=== PATIENT | female | born 1955 | race Caucasian/White ===

== ENCOUNTER → 2023-12-31 15:10 | Outpatient (REF) | payer BC, SELFPAY ==
[2023-12-31 15:41] LABS: Ionized Calcium 1.28 mMOL/L (1.15-1.33)
[2023-12-31 16:22] LABS: ALT (SGPT) 29 U/L (0-35); AST (SGOT) 35 U/L (14-36); Albumin 4.3 g/dl (3.5-5.0); Alkaline Phosphatase 52 U/L (38-126); Blood Urea Nitrogen 13 mg/dl (7-17); Calcium 11.1 mg/dl (8.4-10.2); Carbon Dioxide 29 mmol/L (22-30); Chloride 101 mmol/L (98-107); Glucose 96 mg/dl (70-99); Potassium 4.4 mmol/L (3.5-5.1); Sodium 136 mmol/L (135-145); Total Bilirubin 0.7 mg/dl (0.2-1.3); Total Protein 7.3 g/dl (6.3-8.2); eGFR > 60.00
[2023-12-31 16:39] LABS: Free T3 3.41 pg/ml (2.77-5.27); Free T4 1.04 ng/dl (0.78-2.19)
[2023-12-31 16:45] LABS: Intact PTH 10.9 pg/ml (13.6-85.8)
[2023-12-31 16:53] LABS: TSH 0.15 uIU/ml (0.47-4.68)
[2024-01-01 13:56] LABS: tTG IgA Antibody 2.9 EU/ml (0-19); tTG IgG Antibody 69.8 EU/ml (0-19)
[2024-01-01 23:55] LABS: IgA 135 mg/dl (70-400)
[2024-01-03 00:02] LABS: Thyroid Peroxidase Ab (TPO) 5.3 IU/mL (0.0-9.0)
[2024-01-03 00:17] LABS: Thyroglobulin 29.1 ng/mL (1.3-31.8); Thyroglobulin Antibodies <0.9 IU/mL (0.0-4.0)
[2024-01-04 03:16] LABS: Endomysial IgA Antibody Titer <1:10 (<1:10)
[2024-01-05 04:14] LABS: Albumin 4.38 g/dL (3.75-5.01); Alpha 1 Globulin 0.22 g/dL (0.19-0.46); Alpha 2 Globulin 0.65 g/dL (0.48-1.05); Free Kappa Light Chains,Quant 15.78 mg/L (3.30-19.40); Free Lambda Light Chains,Quant 11.54 mg/L (5.71-26.30); IgA 139 mg/dL (68-408); IgG 793 mg/dL (768-1632); IgM 75 mg/dL (35-263); Immunofixation Electrophoresis IFE Done; Kappa/Lambda Fr Light Ratio 1.37 (0.26-1.65); Total Protein-Electrophoresis 6.8 g/dL (6.3-8.2)
== END ==
LOC: RAD 15:10
PROVIDERS: ATTENDING PHYSICIAN Internal Medicine Rheumatology; FAMILY PHYSICIAN Internal Medicine
DX: D47.2 Monoclonal gammopathy (principal); D50.9 Iron deficiency anemia, unspecified; E04.1 Nontoxic single thyroid nodule; E07.9 Disorder of thyroid, unspecified; E21.5 Disorder of parathyroid gland, unspecified; E24.8 Other Cushing's syndrome; E83.52 Hypercalcemia; M81.0 Age-related osteoporosis without current pathological fracture; Z87.81 Personal history of (healed) traumatic fracture
CPT/HCPCS: 36415; 72072; 72100; 80053; 82330; 82728; 82784; 83516; 83521; 83970; 84155; 84165; 84432; 84439; 84443; 84481; 86231; 86334; 86376; 86800

== ENCOUNTER → 2024-01-01 09:17 | Outpatient (REF) | payer BC, SELFPAY ==
[2024-01-01 11:54] LABS: Cortisol, Random 24.6 ug/dl
== END ==
LOC: REG 09:17
PROVIDERS: ATTENDING PHYSICIAN Internal Medicine Rheumatology; FAMILY PHYSICIAN Internal Medicine
DX: D47.2 Monoclonal gammopathy (principal); D50.9 Iron deficiency anemia, unspecified; E04.1 Nontoxic single thyroid nodule; E07.9 Disorder of thyroid, unspecified; E21.5 Disorder of parathyroid gland, unspecified; E24.8 Other Cushing's syndrome; K90.41 Non-celiac gluten sensitivity
CPT/HCPCS: 36415; 82533

== ENCOUNTER → 2024-01-03 16:51 | Outpatient (REF) | payer BC, SELFPAY ==
[2024-01-03 17:43] LABS: % Basophils 0.5 % (0-2); % Immature Granulocytes 0.1 % (0-0.5); % Lymphocytes 34.9 % (20.5-51.1); % Monocytes 8.9 % (1.7-9.3); % Neutrophils 51.6 % (42.2-75.2); Absolute Eosinophils 0.3 10^3/uL (0-0.7); Absolute Lymphocytes 2.6 10^3/uL (1.2-3.4); Absolute Monocytes 0.7 10^3/uL (0.1-0.6); Absolute Neutrophils 3.8 10^3/uL (1.4-6.5); Hemoglobin 13.5 g/dL (12.0-16.0); Mean Corp Hgb Conc. 33.8 g/dL (33.0-37.0); Mean Corpuscular Hgb 30.3 pg (27.0-31.0); Mean Corpuscular Volume 89.7 fL (81.0-99.0); Mean Platelet Volume 9.9 fL (7.4-10.4); Nucleated Red Blood Cells % 0 %; Platelet Count 428 10^3/uL (130-400); Red Blood Cell Count 4.46 10^6/uL (4.20-5.40); Red Cell Dist. Width 12.6 % (11.5-14.5); White Blood Cell Count 7.4 10^3/uL (4.8-10.8)
[2024-01-03 17:59] LABS: Iron 106 ug/dl (37-170)
[2024-01-03 18:09] LABS: Percent Saturation 31 % (20-50); Total Iron Binding Capacity 337 ug/dl (265-497)
[2024-01-03 18:17] LABS: Free T3 3.15 pg/ml (2.77-5.27)
[2024-01-03 18:31] LABS: TSH 0.28 uIU/ml (0.47-4.68)
[2024-01-06 15:55] LABS: Thyroglobulin Antibodies <0.9 IU/mL (0.0-4.0)
== END ==
LOC: REG 16:51
PROVIDERS: ATTENDING PHYSICIAN Internal Medicine
DX: E78.00 Pure hypercholesterolemia, unspecified (principal); R79.0 Abnormal level of blood mineral; R79.89 Other specified abnormal findings of blood chemistry; E06.3 Autoimmune thyroiditis
CPT/HCPCS: 36415; 83540; 83550; 84439; 84443; 84481; 85025; 86376; 86800

== ENCOUNTER 2024-02-11 11:32 | Outpatient (RCR) | payer BC, SELFPAY ==
[2024-02-11 11:50] VITALS: BP 120/57
[2024-02-11] MEDS: PROLIA 60 MG SC (12:13)
== END 2024-02-12 08:24 | disposition home or self-care (01) ==
LOC: OID 11:32
PROVIDERS: ATTENDING PHYSICIAN Internal Medicine Rheumatology
DX: M81.0 Age-related osteoporosis without current pathological fracture (principal)
CPT/HCPCS: 96372; J0897

== ENCOUNTER 2024-03-02 17:50 | Outpatient (RCR) | payer BC, SELFPAY | END 2024-03-02 23:59 | disposition home or self-care (01) | LOC: RPT 17:50 | PROVIDERS: ATTENDING PHYSICIAN Internal Medicine | DX: M51.36 Other intervertebral disc degeneration, lumbar region (principal); Z73.6 Limitation of activities due to disability; M62.81 Muscle weakness (generalized); M41.24 Other idiopathic scoliosis, thoracic region | CPT/HCPCS: 97110; 97162 ==

== ENCOUNTER → 2024-03-06 08:21 | Outpatient (REF) | payer BC, SELFPAY ==
[2024-03-06 09:12] LABS: % Basophils 0.9 % (0-2); % Immature Granulocytes 0.2 % (0-0.5); % Lymphocytes 40.3 % (20.5-51.1); % Neutrophils 47.6 % (42.2-75.2); Absolute Basophils 0.1 10^3/uL (0-0.2); Absolute Eosinophils 0.2 10^3/uL (0-0.7); Absolute Lymphocytes 2.2 10^3/uL (1.2-3.4); Absolute Monocytes 0.4 10^3/uL (0.1-0.6); Absolute Neutrophils 2.6 10^3/uL (1.4-6.5); Hematocrit 38.4 % (37.0-47.0); Hemoglobin 12.9 g/dL (12.0-16.0); Mean Corp Hgb Conc. 33.6 g/dL (33.0-37.0); Mean Corpuscular Hgb 29.6 pg (27.0-31.0); Mean Corpuscular Volume 88.1 fL (81.0-99.0); Mean Platelet Volume 9.6 fL (7.4-10.4); Nucleated Red Blood Cells % 0 %; Platelet Count 388 10^3/uL (130-400); Red Blood Cell Count 4.36 10^6/uL (4.20-5.40); Red Cell Dist. Width 12.9 % (11.5-14.5); White Blood Cell Count 5.4 10^3/uL (4.8-10.8)
[2024-03-06 09:42] LABS: Erythrocyte Sed Rate 10 mm/hour (0-20)
[2024-03-06 09:47] LABS: HDL Cholesterol 63 mg/dl; Iron 94 ug/dl (37-170); LDL Cholesterol, Calculated 135 mg/dl; Total Cholesterol 227 mg/dl (50-199); Triglyceride 148 mg/dl (10-149); Very Low Density Lipoprotein 29 mg/dl (0-30)
[2024-03-06 09:56] LABS: Percent Saturation 28 % (20-50); Total Iron Binding Capacity 326 ug/dl (265-497)
[2024-03-06 10:23] LABS: Ferritin 15.1 ng/ml (11.1-264.0)
[2024-03-06 10:54] LABS: Folate > 20.0 ng/ml (2.76-20); Vitamin B12 876 pg/ml (239-931)
== END ==
LOC: REG 08:21
PROVIDERS: ATTENDING PHYSICIAN Nurse Practitioner Family; FAMILY PHYSICIAN Internal Medicine
DX: D75.839 Thrombocytosis, unspecified (principal); R53.83 Other fatigue; E06.3 Autoimmune thyroiditis; E78.00 Pure hypercholesterolemia, unspecified; R79.0 Abnormal level of blood mineral
CPT/HCPCS: 36415; 80061; 81206; 81207; 81270; 82607; 82728; 82746; 83540; 83550; 85025; 85652

== ENCOUNTER → 2024-03-09 13:56 | Outpatient (REF) | payer BC, SELFPAY | LOC: HWRAD 13:56 | PROVIDERS: ATTENDING PHYSICIAN Internal Medicine Endocrinology, Diabetes & Metabolism; FAMILY PHYSICIAN Internal Medicine | DX: E04.2 Nontoxic multinodular goiter (principal) | CPT/HCPCS: 76536 ==

== ENCOUNTER 2024-03-16 17:24 | Outpatient (RCR) | payer BC, SELFPAY | END 2024-03-16 23:59 | disposition home or self-care (01) | LOC: RPT 17:24 | PROVIDERS: ATTENDING PHYSICIAN Internal Medicine | DX: M51.36 Other intervertebral disc degeneration, lumbar region (principal); M41.124 Adolescent idiopathic scoliosis, thoracic region | CPT/HCPCS: 97110 ==

== ENCOUNTER → 2024-04-01 15:08 | Outpatient (REF) | payer BC, SELFPAY ==
[2024-04-01 16:57] LABS: TSH 2.12 uIU/ml (0.47-4.68)
== END ==
LOC: REG 15:08
PROVIDERS: ATTENDING PHYSICIAN Internal Medicine Endocrinology, Diabetes & Metabolism; FAMILY PHYSICIAN Internal Medicine
DX: E04.2 Nontoxic multinodular goiter (principal)
CPT/HCPCS: 36415; 84443

== ENCOUNTER 2024-04-22 18:41 | Outpatient (RCR) | payer BC, SELFPAY | END 2024-04-22 23:59 | disposition home or self-care (01) | LOC: RPT 18:41 | PROVIDERS: ATTENDING PHYSICIAN Internal Medicine | DX: M51.36 Other intervertebral disc degeneration, lumbar region (principal); Z73.6 Limitation of activities due to disability; M62.81 Muscle weakness (generalized); M41.24 Other idiopathic scoliosis, thoracic region | CPT/HCPCS: 97110; 97140 ==

== ENCOUNTER 2024-05-13 17:06 | Outpatient (RCR) | payer BC, SELFPAY | END 2024-05-13 23:59 | disposition home or self-care (01) | LOC: RPT 17:06 | PROVIDERS: ATTENDING PHYSICIAN Internal Medicine | DX: M51.36 Other intervertebral disc degeneration, lumbar region (principal); M41.124 Adolescent idiopathic scoliosis, thoracic region | CPT/HCPCS: 97110; 97140 ==

== ENCOUNTER → 2024-06-12 11:19 | Outpatient (REF) | payer BC, SELFPAY ==
[2024-06-12 19:08] LABS: Urine Albumin Negative (Neg - Trace); Urine Bilirubin Negative (Negative); Urine Character Clear (Clear); Urine Color Yellow; Urine Glucose Negative (Negative); Urine Ketone Negative (Negative); Urine Leukocyte Negative (Negative); Urine Nitrite Negative (Negative); Urine Occult Blood Trace (Negative); Urine Urobilinogen Negative (Neg - 1+)
[2024-06-12 19:25] LABS: Urine Bacteria Few (Negative); Urine Red Blood Cell 0-2 /HPF (0-2); Urine White Cell 0-2 /HPF (0-5)
== END ==
LOC: HWRAD 11:19
PROVIDERS: ATTENDING PHYSICIAN Family Medicine
DX: M25.551 Pain in right hip (principal); M25.561 Pain in right knee
CPT/HCPCS: 73502; 73564; 81003; 81015

== ENCOUNTER → 2024-07-30 17:21 | Outpatient (REF) | payer BC, SELFPAY | LOC: WDC 17:21 | PROVIDERS: ATTENDING PHYSICIAN Family Medicine | DX: Z12.31 Encounter for screening mammogram for malignant neoplasm of breast (principal) | CPT/HCPCS: 77063; 77067 ==

== ENCOUNTER → 2024-08-11 15:51 | Outpatient (REF) | payer BC, SELFPAY ==
[2024-08-11 18:05] LABS: ALT (SGPT) 26 U/L (0-35); AST (SGOT) 34 U/L (14-36); Albumin 4.4 g/dl (3.5-5.0); Alkaline Phosphatase 44 U/L (38-126); Blood Urea Nitrogen 16 mg/dl (7-17); Calcium 10.5 mg/dl (8.4-10.2); Carbon Dioxide 27 mmol/L (22-30); Chloride 103 mmol/L (98-107); Glucose 88 mg/dl (70-99); Potassium 4.4 mmol/L (3.5-5.1); Sodium 140 mmol/L (135-145); Total Bilirubin 0.2 mg/dl (0.2-1.3); Total Protein 6.7 g/dl (6.3-8.2); eGFR > 60.00
== END ==
LOC: REG 15:51
PROVIDERS: ATTENDING PHYSICIAN Internal Medicine Endocrinology, Diabetes & Metabolism; FAMILY PHYSICIAN Family Medicine
DX: E83.52 Hypercalcemia (principal)
CPT/HCPCS: 36415; 80053

== ENCOUNTER → 2024-09-17 09:16 | Outpatient (REF) | payer BC, SELFPAY ==
[2024-09-17 10:54] LABS: ALT (SGPT) 24 U/L (0-35); AST (SGOT) 32 U/L (14-36); Albumin 4.7 g/dl (3.5-5.0); Alkaline Phosphatase 56 U/L (38-126); Blood Urea Nitrogen 16 mg/dl (7-17); Calcium 10.7 mg/dl (8.4-10.2); Carbon Dioxide 29 mmol/L (22-30); Chloride 102 mmol/L (98-107); Glucose 94 mg/dl (70-99); Potassium 4.9 mmol/L (3.5-5.1); Sodium 142 mmol/L (135-145); Total Bilirubin 0.4 mg/dl (0.2-1.3); Total Protein 7.3 g/dl (6.3-8.2); eGFR > 60.00
[2024-09-17 11:28] LABS: TSH 1.77 uIU/ml (0.47-4.68)
== END ==
LOC: REG 09:16
PROVIDERS: ATTENDING PHYSICIAN Internal Medicine Endocrinology, Diabetes & Metabolism; FAMILY PHYSICIAN Family Medicine
DX: E04.2 Nontoxic multinodular goiter (principal); E83.52 Hypercalcemia; E55.9 Vitamin D deficiency, unspecified
CPT/HCPCS: 36415; 80053; 82306; 83970; 84443

== ENCOUNTER → 2024-10-08 15:44 | Outpatient (REF) | payer BC, SELFPAY ==
[2024-10-08 16:40] LABS: % Basophils 0.6 % (0-2); % Eosinophils 2.2 % (0-6); % Immature Granulocytes 0.2 % (0-0.5); % Lymphocytes 39.7 % (20.5-51.1); % Monocytes 7.2 % (1.7-9.3); % Neutrophils 50.1 % (42.2-75.2); Absolute Basophils 0.1 10^3/uL (0-0.2); Absolute Eosinophils 0.2 10^3/uL (0-0.7); Absolute Lymphocytes 3.2 10^3/uL (1.2-3.4); Absolute Monocytes 0.6 10^3/uL (0.1-0.6); Absolute Neutrophils 4.1 10^3/uL (1.4-6.5); Hematocrit 38.5 % (37.0-47.0); Hemoglobin 12.9 g/dL (12.0-16.0); Mean Corp Hgb Conc. 33.5 g/dL (33.0-37.0); Mean Corpuscular Hgb 30.8 pg (27.0-31.0); Mean Corpuscular Volume 91.9 fL (81.0-99.0); Mean Platelet Volume 10.2 fL (7.4-10.4); Nucleated Red Blood Cells % 0 %; Platelet Count 403 10^3/uL (130-400); Red Blood Cell Count 4.19 10^6/uL (4.20-5.40); Red Cell Dist. Width 12.7 % (11.5-14.5); White Blood Cell Count 8.1 10^3/uL (4.8-10.8)
[2024-10-08 16:58] LABS: Iron 115 ug/dl (37-170)
[2024-10-08 16:59] LABS: Erythrocyte Sed Rate 11 mm/hour (0-20)
[2024-10-08 17:08] LABS: Percent Saturation 35 % (20-50); Total Iron Binding Capacity 326 ug/dl (265-497)
[2024-10-08 17:22] LABS: Ferritin 15.6 ng/ml (11.1-264.0)
== END ==
LOC: REG 15:44
PROVIDERS: ATTENDING PHYSICIAN Internal Medicine Hematology & Oncology; FAMILY PHYSICIAN Family Medicine
DX: D75.839 Thrombocytosis, unspecified (principal); R53.83 Other fatigue; E06.3 Autoimmune thyroiditis
CPT/HCPCS: 36415; 82728; 83540; 83550; 85025; 85652

== ENCOUNTER 2024-11-19 12:53 | Outpatient (RCR) | payer BC, SELFPAY ==
[2024-11-19 13:02] VITALS: BP 123/61
[2024-11-19] MEDS: PROLIA 60 MG SC (13:14)
== END 2024-12-04 23:59 | disposition home or self-care (01) ==
LOC: OID 12:53
PROVIDERS: ATTENDING PHYSICIAN Internal Medicine Rheumatology; FAMILY PHYSICIAN Family Medicine
DX: M81.0 Age-related osteoporosis without current pathological fracture (principal)
CPT/HCPCS: 96372; J0897

== ENCOUNTER 2025-01-25 06:17 | Day surgery (SDC) | payer BC, SELFPAY | END 2025-01-25 12:33 | disposition home or self-care (01) | LOC: GI 06:17 | PROVIDERS: ATTENDING PHYSICIAN Internal Medicine | DX: Z12.11 Encounter for screening for malignant neoplasm of colon (principal); K63.89 Other specified diseases of intestine; K57.30 Diverticulosis of large intestine without perforation or abscess without bleeding; D12.0 Benign neoplasm of cecum; D12.3 Benign neoplasm of transverse colon; D12.4 Benign neoplasm of descending colon; Z86.0100 Personal history of colon polyps, unspecified | CPT/HCPCS: 45385; 45380; 88305 ==

== ENCOUNTER 2025-01-28 11:45 | Outpatient (RCR) | payer BC, SELFPAY ==
[2025-01-06 11:09] VITALS: BP 111/60
[2025-01-06] MEDS: VENOFER 110 MG IV (11:14)
[2025-01-13] MEDS: VENOFER 110 MG IV (13:12)
[2025-01-13 13:15] VITALS: BP 119/55
[2025-01-13 14:40] VITALS: BP 108/47
[2025-01-13 15:23] VITALS: BP 108/47
[2025-01-20] MEDS: NSS 500 IV (11:25)
[2025-01-20] MEDS: VENOFER 110 MG IV (11:26)
[2025-01-20 11:29] LABS: % Basophils 0.4 % (0-2); % Eosinophils 3.2 % (0-6); % Immature Granulocytes 0.2 % (0-0.5); % Lymphocytes 38.9 % (20.5-51.1); % Monocytes 7.3 % (1.7-9.3); Absolute Eosinophils 0.2 10^3/uL (0-0.7); Absolute Lymphocytes 2.1 10^3/uL (1.2-3.4); Absolute Monocytes 0.4 10^3/uL (0.1-0.6); Absolute Neutrophils 2.7 10^3/uL (1.4-6.5); Hemoglobin 13.2 g/dL (12.0-16.0); Mean Corp Hgb Conc. 33.8 g/dL (33.0-37.0); Mean Corpuscular Hgb 29.9 pg (27.0-31.0); Mean Corpuscular Volume 88.4 fL (81.0-99.0); Mean Platelet Volume 9.4 fL (7.4-10.4); Platelet Count 380 10^3/uL (130-400); Red Blood Cell Count 4.41 10^6/uL (4.20-5.40); Red Cell Dist. Width 12.3 % (11.5-14.5); White Blood Cell Count 5.4 10^3/uL (4.8-10.8)
[2025-01-20 11:34] VITALS: BP 109/59
[2025-01-20 12:30] VITALS: BP 103/78
[2025-01-20 13:05] VITALS: BP 119/67
[2025-01-28 12:00] VITALS: BP 121/55
[2025-01-28] MEDS: NSS 500 IV (12:32)
[2025-01-28] MEDS: VENOFER 110 MG IV (12:32)
[2025-01-28 14:10] VITALS: BP 116/56
== END 2025-01-29 09:33 | disposition home or self-care (01) ==
LOC: OID 11:45
PROVIDERS: ATTENDING PHYSICIAN Family Medicine; OTHER PHYSICIAN Internal Medicine Endocrinology, Diabetes & Metabolism; REFERRING PHYSICIAN Internal Medicine Hematology & Oncology
DX: D50.9 Iron deficiency anemia, unspecified (principal); M81.0 Age-related osteoporosis without current pathological fracture; E83.52 Hypercalcemia; D75.839 Thrombocytosis, unspecified; T45.4X5A Adverse effect of iron and its compounds, initial encounter; E06.3 Autoimmune thyroiditis; Y93.89 Activity, other specified; D69.1 Qualitative platelet defects; Z59.71 Insufficient health insurance coverage
CPT/HCPCS: 36415; 85025; 96361; 96365; J1756

== ENCOUNTER 2025-02-03 11:33 | Outpatient (RCR) | payer BC, SELFPAY ==
[2025-02-03] MEDS: VENOFER 110 MG IV (12:06)
[2025-02-03] MEDS: NSS 500 IV (12:06)
[2025-02-03 12:12] VITALS: BP 103/44
[2025-02-03 12:15] LABS: % Basophils 0.5 % (0-2); % Immature Granulocytes 0.3 % (0-0.5); % Lymphocytes 40.5 % (20.5-51.1); % Monocytes 8.2 % (1.7-9.3); % Neutrophils 46.5 % (42.2-75.2); Absolute Eosinophils 0.2 10^3/uL (0-0.7); Absolute Lymphocytes 2.3 10^3/uL (1.2-3.4); Absolute Monocytes 0.5 10^3/uL (0.1-0.6); Absolute Neutrophils 2.7 10^3/uL (1.4-6.5); Hematocrit 38.7 % (37.0-47.0); Mean Corp Hgb Conc. 33.6 g/dL (33.0-37.0); Mean Corpuscular Hgb 29.9 pg (27.0-31.0); Mean Platelet Volume 9.5 fL (7.4-10.4); Platelet Count 361 10^3/uL (130-400); Red Blood Cell Count 4.35 10^6/uL (4.20-5.40); Red Cell Dist. Width 12.6 % (11.5-14.5); White Blood Cell Count 5.8 10^3/uL (4.8-10.8)
[2025-02-03 14:46] VITALS: BP 103/56
== END 2025-03-03 23:59 | disposition home or self-care (01) ==
LOC: OID 11:33
PROVIDERS: ATTENDING PHYSICIAN Internal Medicine Hematology & Oncology; FAMILY PHYSICIAN Family Medicine; OTHER PHYSICIAN Internal Medicine Endocrinology, Diabetes & Metabolism
DX: M81.0 Age-related osteoporosis without current pathological fracture (principal); D50.9 Iron deficiency anemia, unspecified; E83.52 Hypercalcemia; T45.4X5A Adverse effect of iron and its compounds, initial encounter; Y93.89 Activity, other specified; D75.839 Thrombocytosis, unspecified; D69.1 Qualitative platelet defects; E06.3 Autoimmune thyroiditis; Z59.71 Insufficient health insurance coverage
CPT/HCPCS: 36415; 85025; 96361; 96365; J1756

== ENCOUNTER → 2025-02-08 09:40 | Outpatient (REF) | payer BC, SELFPAY ==
[2025-02-08 11:19] LABS: ALT (SGPT) 36 U/L (0-35); AST (SGOT) 39 U/L (14-36); Albumin 4.5 g/dl (3.5-5.0); Alkaline Phosphatase 60 U/L (38-126); Blood Urea Nitrogen 17 mg/dl (7-17); Calcium 10.5 mg/dl (8.4-10.2); Carbon Dioxide 27 mmol/L (22-30); Chloride 106 mmol/L (98-107); Glucose 75 mg/dl (70-99); Potassium 4.3 mmol/L (3.5-5.1); Sodium 141 mmol/L (135-145); Total Bilirubin 0.7 mg/dl (0.2-1.3); eGFR > 60.00
[2025-02-09 10:34] LABS: Intact PTH 62.3 pg/ml (13.6-85.8)
== END ==
LOC: REG 09:40
PROVIDERS: ATTENDING PHYSICIAN Internal Medicine Endocrinology, Diabetes & Metabolism; FAMILY PHYSICIAN Family Medicine; REFERRING PHYSICIAN Internal Medicine Hematology & Oncology
DX: E83.52 Hypercalcemia (principal); M81.0 Age-related osteoporosis without current pathological fracture
CPT/HCPCS: 36415; 80053; 83970

== ENCOUNTER → 2025-02-23 10:33 | Outpatient (REF) | payer BC, SELFPAY ==
[2025-02-23 11:32] LABS: % Basophils 0.8 % (0-2); % Immature Granulocytes 0.2 % (0-0.5); % Lymphocytes 39.5 % (20.5-51.1); % Monocytes 7.9 % (1.7-9.3); % Neutrophils 48.6 % (42.2-75.2); Absolute Basophils 0.1 10^3/uL (0-0.2); Absolute Eosinophils 0.2 10^3/uL (0-0.7); Absolute Lymphocytes 2.5 10^3/uL (1.2-3.4); Absolute Monocytes 0.5 10^3/uL (0.1-0.6); Absolute Neutrophils 3.1 10^3/uL (1.4-6.5); Hemoglobin 13.2 g/dL (12.0-16.0); Mean Corpuscular Hgb 30.1 pg (27.0-31.0); Mean Corpuscular Volume 91.3 fL (81.0-99.0); Mean Platelet Volume 9.9 fL (7.4-10.4); Nucleated Red Blood Cells % 0 %; Platelet Count 347 10^3/uL (130-400); Red Blood Cell Count 4.38 10^6/uL (4.20-5.40); White Blood Cell Count 6.4 10^3/uL (4.8-10.8)
[2025-02-23 12:15] LABS: Iron 140 ug/dl (37-170); Percent Saturation 52 % (20-50); Total Iron Binding Capacity 266 ug/dl (265-497)
== END ==
LOC: REG 10:33
PROVIDERS: ATTENDING PHYSICIAN Internal Medicine Hematology & Oncology; FAMILY PHYSICIAN Family Medicine
DX: D75.839 Thrombocytosis, unspecified (principal); R53.83 Other fatigue; E06.3 Autoimmune thyroiditis; D50.9 Iron deficiency anemia, unspecified
CPT/HCPCS: 36415; 82728; 83540; 83550; 85025

== ENCOUNTER → 2025-03-26 17:12 | Outpatient (REF) | payer BC, SELFPAY | LOC: RAD 17:12 | PROVIDERS: ATTENDING PHYSICIAN Internal Medicine Endocrinology, Diabetes & Metabolism; FAMILY PHYSICIAN Family Medicine | DX: E04.2 Nontoxic multinodular goiter (principal) | CPT/HCPCS: 76536 ==

== ENCOUNTER → 2025-05-10 13:21 | Outpatient (REF) | payer BC, SELFPAY ==
[2025-05-10 14:18] LABS: Hematocrit 39.5 % (37.0-47.0); Hemoglobin 13.4 g/dL (12.0-16.0); Mean Corp Hgb Conc. 33.9 g/dL (33.0-37.0); Mean Corpuscular Volume 89.2 fL (81.0-99.0); Nucleated Red Blood Cells % 0 %; Platelet Count 369 10^3/uL (130-400); Red Cell Dist. Width 12.6 % (11.5-14.5)
[2025-05-10 14:45] LABS: Iron 110 ug/dl (37-170)
[2025-05-10 14:51] LABS: ALT (SGPT) 34 U/L (0-35); AST (SGOT) 38 U/L (14-36); Albumin 4.8 g/dl (3.5-5.0); Alkaline Phosphatase 48 U/L (38-126); Blood Urea Nitrogen 15 mg/dl (7-17); Calcium 10.5 mg/dl (8.4-10.2); Carbon Dioxide 21 mmol/L (22-30); Chloride 108 mmol/L (98-107); Glucose 85 mg/dl (70-99); Potassium 4.6 mmol/L (3.5-5.1); Sodium 138 mmol/L (135-145); Total Protein 7.0 g/dl (6.3-8.2); eGFR > 60.00
[2025-05-10 14:56] LABS: Total Iron Binding Capacity 291 ug/dl (265-497)
[2025-05-10 15:04] LABS: Vitamin D, 25-OH*** 50.1 ng/mL (30-80)
[2025-05-10 15:18] LABS: TSH 1.63 uIU/ml (0.47-4.68)
[2025-05-10 15:22] LABS: Ferritin 122.0 ng/ml (11.1-264.0)
== END ==
LOC: REG 13:21
PROVIDERS: ATTENDING PHYSICIAN Internal Medicine Hematology & Oncology; FAMILY PHYSICIAN Family Medicine; OTHER PHYSICIAN Internal Medicine Endocrinology, Diabetes & Metabolism
DX: E55.9 Vitamin D deficiency, unspecified (principal); M81.0 Age-related osteoporosis without current pathological fracture; E83.52 Hypercalcemia; E04.2 Nontoxic multinodular goiter; D75.839 Thrombocytosis, unspecified; R53.83 Other fatigue; E06.3 Autoimmune thyroiditis; D50.9 Iron deficiency anemia, unspecified
CPT/HCPCS: 36415; 80053; 82306; 82728; 83540; 83550; 83970; 84443; 85025

== ENCOUNTER → 2025-05-21 14:57 | Outpatient (REF) | payer BC, SELFPAY | LOC: OLAB 14:57 | PROVIDERS: ATTENDING PHYSICIAN Nurse Practitioner Adult Health; OTHER PHYSICIAN Pathology Anatomic Pathology & Clinical Pathology | DX: D48.5 Neoplasm of uncertain behavior of skin (principal) | CPT/HCPCS: 88305 ==

== ENCOUNTER 2025-06-07 10:50 | Outpatient (RCR) | payer BC, SELFPAY ==
[2025-06-07 11:08] VITALS: BP 101/64
[2025-06-07] MEDS: PROLIA 60 MG SC (11:18)
== END 2025-07-04 23:59 | disposition home or self-care (01) ==
LOC: OID 10:50
PROVIDERS: ATTENDING PHYSICIAN Internal Medicine Endocrinology, Diabetes & Metabolism; FAMILY PHYSICIAN Family Medicine
DX: E83.52 Hypercalcemia (principal); M81.0 Age-related osteoporosis without current pathological fracture (principal); T45.4X5A Adverse effect of iron and its compounds, initial encounter; D50.9 Iron deficiency anemia, unspecified; D75.839 Thrombocytosis, unspecified; Y93.89 Activity, other specified; D69.1 Qualitative platelet defects; E06.3 Autoimmune thyroiditis; Z59.71 Insufficient health insurance coverage
CPT/HCPCS: 36415; 80053; 80061; 82728; 83036; 83540; 83550; 85025; 96372; J0897

== ENCOUNTER → 2025-06-11 11:48 | Outpatient (REF) | payer BC, SELFPAY | LOC: CLAB 11:48 | PROVIDERS: ATTENDING PHYSICIAN Family Medicine | DX: N89.8 Other specified noninflammatory disorders of vagina (principal) | CPT/HCPCS: 81513; 87481; 87661 ==

== ENCOUNTER → 2025-06-22 16:34 | Outpatient (REF) | payer BC, SELFPAY | LOC: RAD 16:34 | PROVIDERS: ATTENDING PHYSICIAN Family Medicine | DX: E78.2 Mixed hyperlipidemia (principal) | CPT/HCPCS: 75571 ==

== ENCOUNTER → 2025-06-28 14:36 | Outpatient (REF) | payer BC, SELFPAY | LOC: RAD 14:36 | PROVIDERS: ATTENDING PHYSICIAN Family Medicine | DX: M79.89 Other specified soft tissue disorders (principal) | CPT/HCPCS: 93922; 93925; 93970 ==

== ENCOUNTER → 2025-07-13 16:28 | Outpatient (REF) | payer BC, SELFPAY ==
[2025-07-13 17:33] LABS: Hematocrit 40.3 % (37.0-47.0); Hemoglobin 13.3 g/dL (12.0-16.0); Mean Corp Hgb Conc. 33.0 g/dL (33.0-37.0); Mean Corpuscular Volume 90.2 fL (81.0-99.0); Nucleated Red Blood Cells % 0 %; Platelet Count 392 10^3/uL (130-400); Red Cell Dist. Width 12.1 % (11.5-14.5)
[2025-07-13 17:52] LABS: Iron 103 ug/dl (37-170)
[2025-07-13 18:02] LABS: Total Iron Binding Capacity 298 ug/dl (265-497)
[2025-07-13 18:29] LABS: Ferritin 91.4 ng/ml (11.1-264.0)
[2025-07-13 20:03] LABS: Vitamin B12 965 pg/ml (239-931)
== END ==
LOC: REG 16:28
PROVIDERS: ATTENDING PHYSICIAN Internal Medicine Hematology & Oncology; FAMILY PHYSICIAN Family Medicine
DX: D75.839 Thrombocytosis, unspecified (principal); R53.83 Other fatigue; E06.3 Autoimmune thyroiditis; D50.9 Iron deficiency anemia, unspecified
CPT/HCPCS: 36415; 82607; 82728; 83540; 83550; 85025

== ENCOUNTER → 2025-07-30 11:41 | Outpatient (REF) | payer BC, SELFPAY | LOC: RAD 11:41 | PROVIDERS: ATTENDING PHYSICIAN Family Medicine | DX: M81.0 Age-related osteoporosis without current pathological fracture (principal) | CPT/HCPCS: 77080 ==

== ENCOUNTER → 2025-08-10 16:55 | Outpatient (REF) | payer BC, SELFPAY | LOC: WDC 16:55 | PROVIDERS: ATTENDING PHYSICIAN Family Medicine | DX: Z12.31 Encounter for screening mammogram for malignant neoplasm of breast (principal) | CPT/HCPCS: 77063; 77067 ==

== ENCOUNTER → 2025-08-20 14:12 | Outpatient (REF) | payer BC, SELFPAY ==
[2025-08-20 15:14] LABS: Hematocrit 40.2 % (37.0-47.0); Hemoglobin 13.2 g/dL (12.0-16.0); Mean Corp Hgb Conc. 32.8 g/dL (33.0-37.0); Mean Corpuscular Volume 89.9 fL (81.0-99.0); Nucleated Red Blood Cells % 0 %; Platelet Count 415 10^3/uL (130-400); Red Cell Dist. Width 12.1 % (11.5-14.5)
[2025-08-20 16:45] LABS: Iron 88 ug/dl (37-170)
[2025-08-20 16:54] LABS: Total Iron Binding Capacity 285 ug/dl (265-497)
[2025-08-20 18:28] LABS: Ferritin 109.0 ng/ml (11.1-264.0)
== END ==
LOC: REG 14:12
PROVIDERS: ATTENDING PHYSICIAN Internal Medicine Hematology & Oncology; FAMILY PHYSICIAN Family Medicine
DX: M79.89 Other specified soft tissue disorders (principal); D75.839 Thrombocytosis, unspecified; E06.3 Autoimmune thyroiditis; D50.9 Iron deficiency anemia, unspecified
CPT/HCPCS: 36415; 82728; 83540; 83550; 83880; 85025

== ENCOUNTER → 2025-09-23 16:17 | Outpatient (REF) | payer BC, SELFPAY ==
[2025-09-23 17:14] LABS: Hematocrit 42.6 % (37.0-47.0); Hemoglobin 13.8 g/dL (12.0-16.0); Mean Corp Hgb Conc. 32.4 g/dL (33.0-37.0); Mean Corpuscular Volume 92.4 fL (81.0-99.0); Nucleated Red Blood Cells % 0 %; Platelet Count 406 10^3/uL (130-400); Red Cell Dist. Width 12.6 % (11.5-14.5)
[2025-09-23 17:37] LABS: Iron 108 ug/dl (37-170)
[2025-09-23 17:47] LABS: Total Iron Binding Capacity 311 ug/dl (265-497)
[2025-09-23 18:22] LABS: Ferritin 89.9 ng/ml (11.1-264.0)
== END ==
LOC: REG 16:17
PROVIDERS: ATTENDING PHYSICIAN Internal Medicine Hematology & Oncology; FAMILY PHYSICIAN Family Medicine
DX: D75.839 Thrombocytosis, unspecified (principal); R53.83 Other fatigue; E06.3 Autoimmune thyroiditis; D50.9 Iron deficiency anemia, unspecified
CPT/HCPCS: 36415; 82728; 83540; 83550; 85025